=== PATIENT | female | born 1985 | race Caucasian/White ===

== ENCOUNTER 2024-07-16 12:34 | Emergency (ER) | payer SELFPAY ==
[2024-07-16 12:39] VITALS: BP 132/92
[2024-07-16 12:59] LABS: % Basophils 0.4 % (0-2); % Eosinophils 1.7 % (0-6); % Immature Granulocytes 0.4 % (0-0.5); % Lymphocytes 26.3 % (20.5-51.1); % Monocytes 5.9 % (1.7-9.3); % Neutrophils 65.3 % (42.2-75.2); Absolute Eosinophils 0.2 10^3/uL (0-0.7); Absolute Lymphocytes 2.9 10^3/uL (1.2-3.4); Absolute Monocytes 0.6 10^3/uL (0.1-0.6); Absolute Neutrophils 7.1 10^3/uL (1.4-6.5); Hemoglobin 16.7 g/dL (12.0-16.0); Mean Corp Hgb Conc. 34.1 g/dL (33.0-37.0); Mean Corpuscular Hgb 29.1 pg (27.0-31.0); Mean Corpuscular Volume 85.5 fL (81.0-99.0); Mean Platelet Volume 10.9 fL (7.4-10.4); Nucleated Red Blood Cells % 0 %; Platelet Count 244 10^3/uL (130-400); Red Blood Cell Count 5.73 10^6/uL (4.20-5.40); Red Cell Dist. Width 14.6 % (11.5-14.5); White Blood Cell Count 10.9 10^3/uL (4.8-10.8)
[2024-07-16 13:18] LABS: ALT (SGPT) 28 U/L (0-35); AST (SGOT) 23 U/L (14-36); Albumin 4.2 g/dl (3.5-5.0); Alkaline Phosphatase 79 U/L (38-126); Blood Urea Nitrogen 7 mg/dl (7-17); Calcium 9.7 mg/dl (8.4-10.2); Carbon Dioxide 25 mmol/L (22-30); Chloride 105 mmol/L (98-107); Glucose 80 mg/dl (70-99); Potassium 4.7 mmol/L (3.5-5.1); Sodium 141 mmol/L (135-145); Total Bilirubin 0.5 mg/dl (0.2-1.3); Total Protein 7.8 g/dl (6.3-8.2); eGFR > 60.00
[2024-07-16 13:28] LABS: Troponin I < 0.012 ng/ml
--- NOTE | 2024-07-16 15:41 | ED.GENMED ---
History of Present Illness
General
Chief Complaint: Chest Pain
Source: patient
Time Seen by Provider: 07/16/24 15:04
History of Present Illness
History of Present Illness:
38-year-old female presents to the emergency room complaining of chest pain. Patient began having chest pain 2 days ago. She was laying looking at her phone when she had a sudden onset of discomfort and palpitations. Her heart was racing and felt
like he was beating out of her chest. The rapid heart rate persisted for about 30 seconds and then resolved but she has continued to have the discomfort. It is located in her anterior chest and does radiate a bit to the back. She feels
subjectively a bit short of breath. Nothing seems to make the discomfort better or worse. She denies any previous cardiac history. She does have migraines for which he occasionally takes sumatriptan. She did have a car ride to [place] for the
holidays and drove home on Monday. The car ride was about 3 hours or so. She denies any leg discomfort or swelling. She does smoke. She drinks occasionally. She denies any recreational drug use.
Phy Exam
Physical Exam
Physical Exam:
General: Awake, Alert, Oriented X3. No acute distress but seems been uncomfortable
Vitals: unremarkable
Head: Atraumatic
Eyes: Pupils equal, EOMI
Throat: Airway intact, no exudates
Neck: Trachea midline
Lungs: Clear and equal b/l
Heart: Regular rate, no murmurs
Abd: Soft, Nontender, No pulsatile mass
Neuro: Nonfocal
Skin: Warm, dry, no rash
Extremities: pulses equal b/l, no edema
Scores
Heart Score for Chest Pain Patients
STEMI patient?: No
History: Slightly or Non-Suspicious
ECG: Normal
Age: </= 45 years
Risk Factors: No Risk Factors
Troponin: </= Normal Limit
Heart Score for Chest Pain Patients: 0
Heart Score Risk: 2.5% MACE over next 6 weeks
Course
Orders/Labs/Results
Orders:
Orders
07/16/24 12:35
ECG [Electrocardiogram (*1)] Urgent
Reason for Study: Chest Pain
EKG- Treatment ONCE
07/16/24 12:48
Complete Blood Count/With Diff Urgent
Comprehensive Metabolic Panel Urgent
HCG, Serum Qualitative Screen Urgent
Comment: ADD ON
Troponin I Urgent
07/16/24 15:39
Add On- LAB Urgent
Tests Added?: serum hcg
CT Chest PE Study Urgent
Comment:
Reason For Exam: chest pain, sob recent travel
07/16/24 15:40
Ketorolac [Toradol] 15 mg IV NOW STA
Abnormal Lab Results
07/16/24
12:48
WBC 10.9 H 10^3/uL
(4.8-10.8)
RBC 5.73 H 10^6/uL
(4.20-5.40)
Hgb 16.7 H g/dL
(12.0-16.0)
Hct 49.0 H %
(37.0-47.0)
RDW 14.6 H %
(11.5-14.5)
MPV 10.9 H fL
(7.4-10.4)
Absolute Neuts (auto) 7.1 H 10^3/uL
(1.4-6.5)
07/16/24 12:48
07/16/24 12:48
Vital Signs
Initial and Last Documented VS:
Initial Vital Signs
Temp Pulse Resp BP Pulse Ox
97.6 F 85 16 132/92 100
07/16/24 12:39 07/16/24 12:39 07/16/24 12:39 07/16/24 12:39 07/16/24 12:39
Last Documented Vital Signs
Temp Pulse Resp BP Pulse Ox
97.6 F 69 16 132/92 99
07/16/24 12:39 07/16/24 17:00 07/16/24 12:39 07/16/24 12:39 07/16/24 16:45
MDM/Problems Addressed
Differential Diagnosis Includes:
Acute coronary syndrome, pulmonary embolism, pneumothorax, chest wall pain
MDM/Problems Addressed:
Patient presents with chest discomfort. Workup here ultimately was reassuring. Her labs show a elevated hemoglobin at 16.7 likely secondary to smoking. Her chemistries and troponin are normal. Given her recent travel history a CT of the chest
was performed which showed no evidence of PE or any other intra or thoracic pathology. Pain has been present for greater than 24 hours and so a single troponin is appropriate. Patient stable for discharge home and outpatient follow-up
*Radiology
Radiology exam reviewed: radiology read reviewed
*Pulse Oximetry
Patient hypoxic: no
*EKG
Interpreted by ED Provider?: Yes
Heart Rate: 79
Rate: normal
Rhythm: sinus
[place]: normal axis
QRS Pattern: wide non-specific (Nonspecific intraventricular conduction delay with a QRS of 128)
Ischemia: non-specific ST changes
*Liability Claims Representative Interpretation
Rate: normal
Interpretation: normal
Rhythm: sinus
*Critical Care Note
Total Time (30-74mins, 75-104mins- exclusive of procedures): Not Applicable
ED Attending Note
-
Portions of this chart may have been created with voice recognition software.� Occasional wrong word or��sound alike� substitutions may have occurred due to the inherent limitations of voice recognition software.
Discharge Plan
Departure
Patient Disposition: Home (Routine Discharge)
Date of Disposition: 07/16/24
Time of Disposition: 18:05
Patient with high blood pressure during this ER visit?: Yes
Condition: Good
Discharge Problem:
Chest pain
Instructions: Chest Pain PCP Follow Up, BLOOD PRESSURE
Referrals:
Jodie Shaw CRNP [Family Provider] -
Interventions
Interventions:
*Risk Screen - Suicide Last Done: 07/16/24 12:39
*General Assessment Last Done: 07/16/24 12:39
*Neglect/Abuse Screening Last Done: 07/16/24 12:39
*ED- Fall Risk Assessment Last Done: 07/16/24 15:00
*ED COVID-19 Vaccine History Last Done: 07/16/24 12:39
*Nursing Disposition Last Done: 07/16/24 18:17
ED- Cardiac Assessment Last Done: 07/16/24 16:05
Discharge Date and Time
Discharge Date/Time: 07/16/24 18:17
Print Language: LATVIAN
[2024-07-16] MEDS: TORADOL 15 MG IV (16:09)
[2024-07-16 16:18] LABS: HCG, Serum Qualitative Screen Negative
== END 2024-07-16 18:17 | disposition home or self-care (01) ==
LOC: EMR 12:34
PROVIDERS: Emergency Medicine; EMERGENCY PHYSICIAN Emergency Medicine; FAMILY PHYSICIAN Registered Nurse
DX: R07.89 Other chest pain (principal); R00.2 Palpitations; F17.200 Nicotine dependence, unspecified, uncomplicated
CPT/HCPCS: 96374; 99284; 71275; 80053; 84484; 84703; 85025; 93005; Q9967